=== PATIENT | female | born 1965 | race Asian ===

== ENCOUNTER 2017-12-12 19:08 | Emergency (ER) | payer OTHER ==
[~2017-12-12] VITALS: Ht 160 cm; Wt 77.3 kg
[~2017-12-12 19:08] MED LIST: AMLO-511 PO; ATEN50TA PO; LISI-661 PO
[2017-12-12] MEDS ORDERED: LORA-703 PO (19:15)
[2017-12-12] MEDS ORDERED: MethylPREDNISolone SOD SUCC 125 MG/2 ML VIAL IVP ONE (19:45)
[2017-12-12] MEDS ORDERED: DiphenhydrAMINE HCL 50 MG/ML VIAL IVP ONE (19:45)
[2017-12-12 19:50] LABS: BASOPHILS % (AUTO) 0.6 % (0.0-2.0); EOSINOPHILS % (AUTO) 12.2 % (1.0-6.0); HEMATOCRIT 39.4 % (36-46); HEMOGLOBIN 13.2 g/dL (12.0-16.0); LYMPHOCYTES # (AUTO) 2.1 K/uL (1.0-4.8); LYMPHOCYTES % (AUTO) 28.7 % (22.0-44.0); MEAN CORPUSCULAR HEMOGLOBIN 28.8 pg (26.0-34.0); MEAN CORPUSCULAR HGB CONC 33.5 G/dL (31.0-37.0); MEAN CORPUSCULAR VOLUME 86 fL (80-100); MONOCYTES # (AUTO) 0.7 K/uL (0.1-1.0); MONOCYTES % (AUTO) 10.1 % (2.0-9.0); NEUTROPHILS # (AUTO) 3.5 K/uL (1.8-7.7); NEUTROPHILS % (AUTO) 48.4 % (40.0-70.0); PLATELET COUNT (AUTO) 309 K/uL (150-450); RED BLOOD CELL COUNT(AUTO) 4.58 MIL/uL (4.00-5.20); RED CELL DISTRIBUTION WIDTH 14.8 % (11.5-14.5)
[2017-12-12] MEDS ORDERED: LOSA50TA37 PO (19:50)
[2017-12-12] MEDS ORDERED: CloNIDine HCL 0.2 MG TABLET PO ONE (20:00)
[2017-12-12] MEDS ORDERED: LOSARTAN POTASSIUM 50 MG TABLET PO ONE (20:00)
[2017-12-12 20:07] LABS: CALCIUM, TOTAL 9.1 mg/dL (8.8-10.5); POTASSIUM 3.8 mmol/L (3.5-5.1)
[2017-12-12 20:14] LABS: ALBUMIN 3.6 g/dL (3.4-5.0); BILIRUBIN,TOTAL 0.8 mg/dL (0.1-1.0); TOTAL PROTEIN, SERUM 8.8 g/dL (6.4-8.2)
[2017-12-12 20:46] VITALS: BP 181/100
== END 2017-12-12 21:13 | disposition home or self-care (01) ==
LOC: EMS 19:09
DX: L30.9 Dermatitis, unspecified (principal); I10 Essential (primary) hypertension; E03.9 Hypothyroidism, unspecified
CPT/HCPCS: 36415; 80053; 85025; 96374; 96375; 99284; J1200; J2930

== ENCOUNTER 2018-07-19 13:03 | Emergency (ER) | payer OTHER ==
[~2018-07-19] VITALS: Ht 154.9 cm; Wt 72.5 kg
[~2018-07-19 13:03] MED LIST changes: -AMLO-511 PO; -ATEN50TA PO; -LISI-661 PO; +LORA-703 PO; +LOSA50TA25 PO
[2018-07-19 13:24] VITALS: BP 147/91
[2018-07-19 13:34] LABS: GLUCOSE,POINT OF CARE 141 MG/DL (70-110)
[2018-07-19] MEDS ORDERED: ATOR10TA84 PO (13:41)
[2018-07-19] MEDS ORDERED: LOVA20 PO (13:41)
[2018-07-19] MEDS ORDERED: AMLO-511 PO (13:41)
[2018-07-19] MEDS ORDERED: ASPI81 PO (13:41)
[2018-07-19] MEDS ORDERED: NIAC100T3 PO (13:41)
[2018-07-19] MEDS ORDERED: METF-960 PO (13:41)
[2018-07-19] MEDS ORDERED: ATOR20TA86 PO (14:58)
[2018-07-19] MEDS ORDERED: METHOCARBAMOL 750 MG TABLET PO ONE (15:00)
[2018-07-19] MEDS ORDERED: KETOROLAC TROMETHAMINE 60 MG/2 ML VIAL IM ONE (15:00)
== END 2018-07-19 15:45 | disposition home or self-care (01) ==
LOC: EMS 13:03
DX: M54.5 Low back pain (principal); M79.1 Myalgia; E11.9 Type 2 diabetes mellitus without complications; E78.00 Pure hypercholesterolemia, unspecified; I10 Essential (primary) hypertension; Z79.82 Long term (current) use of aspirin; Z79.4 Long term (current) use of insulin; Z79.899 Other long term (current) drug therapy; E03.9 Hypothyroidism, unspecified; Z98.890 Other specified postprocedural states
CPT/HCPCS: 82962; 96372; 99283; J1885

== ENCOUNTER 2019-09-18 11:15 | Emergency (ER) | payer OTHER ==
[~2019-09-18] VITALS: Ht 160 cm; Wt 81.8 kg
[~2019-09-18 11:15] MED LIST changes: +AMLO5TAB9 PO; +ASPI81 PO; +ATOR20TA86 PO; -LOSA50TA25 PO; +LOVA20 PO; +METF-960 PO; +NIAC100T3 PO
[2019-09-18] MEDS ORDERED: LEVO25TA9 PO (11:26)
[2019-09-18 11:35] LABS: GLUCOSE,POINT OF CARE 115 MG/DL (70-110)
[2019-09-18] MEDS ORDERED: ACETAMINOPHEN 325 MG TABLET PO ONE (12:30)
[2019-09-18 14:47] VITALS: BP 109/73
== END 2019-09-18 14:53 | disposition home or self-care (01) ==
LOC: EMS 11:18
DX: S93.601A Unspecified sprain of right foot, initial encounter (principal); E11.9 Type 2 diabetes mellitus without complications; I10 Essential (primary) hypertension; E78.00 Pure hypercholesterolemia, unspecified; E03.9 Hypothyroidism, unspecified; Z79.84 Long term (current) use of oral hypoglycemic drugs; Z79.82 Long term (current) use of aspirin; X50.1XXA Overexertion from prolonged static or awkward postures, initial encounter; Y93.02 Activity, running; Y92.89 Other specified places as the place of occurrence of the external cause; Y99.8 Other external cause status